=== PATIENT | male | born 1995 | race African-American/Black ===

== ENCOUNTER 2022-10-01 13:19 | Emergency (ER) | payer OTHER, SELFPAY ==
[2022-10-01 13:27] VITALS: BP 133/72; PULSE 84; RESP 16; TEMP 36.3; O2SAT 100
--- NOTE | 2022-10-01 14:08 | ED.GENADULT ---
HPI - General Adult General Chief complaint: Upper Respiratory Infection Stated complaint: sore throat Source: patient Mode of arrival: ambulatory Limitations: no limitations History of Present Illness HPI narrative: Patient presents for evaluation of sick symptoms. Seven days ago he had a fever. That improved. He later developed a cough and sore throat. He has a history of tonsil stones. He initially informed me that his current symptoms do not feel like strep but later indicated that his symptoms do feel like strep. No nausea, vomiting, diarrhea, shortness of breath. He is under the care of cardiology for cardiomyopathy. He had COVID back in 2019. He has been taking some allergy medication for his symptoms. No recent sick contacts to his knowledge. He does not smoke. Related Data Home Medications Medication Instructions Recorded Confirmed carvedilol 12.5 mg tablet 12.5 mg PO Q12H 11/08/20 11/08/20 hydrochlorothiazide 25 mg tablet 25 mg PO DAILY 11/08/20 11/08/20 sacubitril 49 mg-valsartan 51 mg 1 tablet PO BID 11/08/20 11/08/20 tablet (Entresto) spironolactone 25 mg tablet 25 mg PO DAILY 11/08/20 11/08/20 Allergies Allergy/AdvReac Type Severity Reaction Status Date / Time No Known Allergies Allergy Verified 11/08/20 13:55 Review of Systems Review of Systems: CONSTITUTIONAL: Denies fever, chills, or sweats. EYES: Denies visual changes, redness, or discharge. ENT: Reports sore throat. Denies rhinorrhea, congestion, or otalgia. CARDIOVASCULAR: Denies chest pain, palpitations, or edema. RESPIRATORY: Reports cough. Denies shortness of breath. GASTROINTESTINAL: Denies abdominal pain, nausea, vomiting, or diarrhea. GENITOURINARY: Denies dysuria or hematuria. SKIN: Denies rash or itching. MUSCULOSKELETAL: Denies back pain, joint pain, or myalgia. NEUROLOGIC: Denies headache, numbness, dizziness, or weakness. PSYCHIATRIC: Denies anxiety or depression. [facility] Past Medical History Medical History (Updated 10/01/22 @ 14:29 by Rob Perales, YOLIE, ANTHONY) History of cardiomyopathy Tonsil stone Surgical History Surgical History No pertinent past surgical history Family History Family History Mother Asthma Sibling Cancer Depression Grandparent Cancer Hypertension Social History Social History Smoking status: Never smoker Alcohol intake: never Substance use: never Substance use type: does not use Living arrangements: with family Gender identity (if verbalized by the patient): Male Spiritual care concerns: No Exam Narrative: GENERAL: Well-appearing, well-nourished, and in no acute distress. HEAD: Normocephalic, atraumatic. EYES: PERRLA and EOMI. ENT: Nares clear, no rhinorrhea or epistaxis. Mucous membranes moist. Bilateral tonsillar swelling and erythema. There are tonsil stones visible in the right. Uvula is midline. bilateral TMs pearly rodriguez nonbulging NECK: Supple. No adenopathy or masses. No carotid bruits or JVD CHEST: Clear to auscultation. No respiratory distress. No wheezes rales or rhonchi HEART: Regular rate and rhythm. No murmur heard. Normal peripheral pulses. ABDOMEN: Soft, nontender, nondistended, normal active bowel sounds. EXTREMITIES: Normal range of motion. No edema. SKIN: Warm, dry, no rash. NEURO: No focal deficits. Alert and oriented x3. PSYCH: Normal mood and affect. Course Course Emergency Course: This is a 27-year-old male who presented for evaluation of sore throat. Rapid strep was negative. We discussed to waiting for throat culture versus treating today. He would like to be treated. I think this is reasonable based on history of cardiomyopathy. Increase hydration. Kifk-[id number] agents for symptom management. Follow up with primary provider. Go to the ER
== END 2022-10-01 14:34 | disposition home or self-care (01) ==
PROVIDERS: Emergency Provider Nurse Practitioner
DX: J03.90 Acute tonsillitis, unspecified (principal)
CPT/HCPCS: 87081; 87880; 99213; G0463

== ENCOUNTER 2024-07-24 19:08 | Emergency (ER) | payer OTHER, SELFPAY ==
[2024-07-24 19:25] VITALS: BP 150/88; PULSE 122; RESP 16; TEMP 37.2; O2SAT 98
--- NOTE | 2024-07-24 19:31 | ED_ITS ---
HPI - URI/Sore Throat General Chief Complaint: Upper Respiratory Infection Stated Complaint: COUGH/STOMACH PAIN FROM COUGH/NAUSEA/RUNNY NOSE Time Seen by Provider: 07/24/24 19:23 Source: patient and RN notes reviewed Mode of arrival: ambulatory Limitations: no limitations History of Present Illness HPI Narrative: Patient presents today complaining of cough, sweats and chills, fatigue, nasal congestion, fever up to 100. Symptoms began yesterday. Denies chest pain or shortness of breath. He has tried DayQuil and Delsym without relief. He was exposed to influenza at work. He does not smoke or vape. No history of asthma. Related Data Home Medications ?Medication ?Instructions ?Recorded ?Confirmed ?Last Taken ?Type carvedilol 12.5 mg tablet 12.5 mg PO Q12H 11/08/20 07/24/24 Unknown History amlodipine 10 mg tablet mg 07/24/24 Unknown History metformin 500 mg tablet,extended mg PO 07/24/24 Unknown History release 24 hr valsartan 80 mg tablet mg 07/24/24 Unknown History Allergies Allergy/AdvReac Type Severity Reaction Status Date / Time No Known Allergies Allergy Verified 07/24/24 19:19 Review of Systems Review of Systems: CONSTITUTIONAL: Denies body aches. + fever, sweats and chills, fatigue EYES: Denies visual changes, redness, or discharge. ENT: Denies rhinorrhea, sore throat, or otalgia.+ congestion CARDIOVASCULAR: Denies chest pain, palpitations, or edema. RESPIRATORY: Denies dyspnea.+ cough GASTROINTESTINAL: Denies abdominal pain, nausea, vomiting, or diarrhea. GENITOURINARY: Denies dysuria or hematuria. SKIN: Denies rash, itching, or wounds. MUSCULOSKELETAL: Denies back pain, joint pain, or myalgia. NEUROLOGIC: Denies headache, numbness, tingling, or weakness. PSYCH: Denies depression or anxiety. [facility] Past Medical History Medical History Tonsil stone History of cardiomyopathy Surgical History Surgical History No pertinent past surgical history Family History Family History Mother Asthma Sibling Cancer Depression Grandparent Cancer Hypertension Social History Social History Smoking status: Never smoker Alcohol intake: never Substance use: never Substance use type: does not use Living arrangements: with family Gender identity (if verbalized by the patient): Male Spiritual care concerns: No Comments At time of signature, I have reviewed and agree with nursing past medical, surgical, social and family history unless otherwise noted. Please see nursing chart for further information. There is no relevant family history pertinent to the presenting complaint Exam Narrative: GENERAL: Mildly ill-appearing, well-nourished, and in no acute distress. HEAD: Normocephalic, atraumatic. EYES: EOMI. No redness or drainage. Conjunctivae normal. ENT: Mucous membranes pink and moist. Nares congested. No rhinorrhea. TMs normal bilaterally. Throat normal. Uvula midline. NECK: Normal AROM. Supple. No lymphadenopathy. CHEST: No respiratory distress. Clear to auscultation. HEART: Regular rhythm. Tachycardic. No murmur appreciated. EXTREMITIES: Normal range of motion. No edema. SKIN: Warm, dry, no rash. Capillary refill normal. Normal skin turgor. NEURO: No focal deficits. Alert and oriented x3. Gait steady. PSYCH: Normal affect. No signs of depression or anxiety. Course Course Level of Care: Express Care Visit Vital Signs Vital signs: Vital Signs Temperature 98.9 F 07/24/24 19:25 Pulse Rate 122 H 07/24/24 19:25 Respiratory Rate 07/24/24 19:25 Blood Pressure 150/88 H 07/24/24 19:25 Pulse Oximetry 98 07/24/24 19:25 Temperature 98.9 F 07/24/24 19:25 Pulse Rate 122 H 07/24/24 19:25 Respiratory Rate 07/24/24 19:25 Blood Pressure 150/88 H 07/24/24 19:25 Pulse Oximetry 98 07/24/24 19:25 Reviewed MDM - URI/Sore Throat MDM Narrative Medical decision making narrative: Influenza a positive. COVID negative. Prescription for Tamiflu and benzonatate sent to pharmacy. Anticipatory guidance given. ED precautions given. Differential Diagnosis Differential diagnosis: Likely upper respiratory infection, viral infection, influenza and other (COVID) Lab Data Attestation: I reviewed the patient's lab results. Lab results narrative: COVID negative, influenza a positive Critical Care Time Critical Care Time Critical Care Time: No Discharge Plan Discharge Clinical Impression: Influenza A Patient Disposition: Home, Self-Care Condition: Stable Instructions: Influenza (DC) Additional Instructions: You have tested positive for influenza A. Please take the Tamiflu as prescribed. Take [id number] medications such as Tylenol for fever or pain. Take the benzonatate if needed for cough. Rest and drink plenty of fluids. Follow-up with your PCP in 5-7 days if symptoms are not improving. Please go to the ER immediately if symptoms worsen to include chest pain, shortness of breath. Your blood pressure was elevated above 120/80 today at Urgent Care. This puts you above the threshold for follow up. Please schedule a followup visit with your personal physician as soon as possible, for further evaluation and treatment. Even blood pressure exceeding 120/80 may indicate pre-hypertension. Patient Language: Arabic Prescriptions: New benzonatate 200 mg capsule 200 mg PO TID PRN (Reason: cough) Qty: 20 0RF oseltamivir [Tamiflu] 75 mg capsule 75 mg PO Q12H 5 Days Qty: 10 0RF No Action valsartan 80 mg tablet amlodipine 10 mg tablet metformin 500 mg tablet extended release 24 hr PO carvedilol 12.5 mg tablet 12.5 mg PO Q12H Rx Instructions: must administer with a meal/food Follow-up/Referrals: Soham,Josiah Robison MD [Primary Care Provider] - Stand Alone Forms: Work/School Release IP Time of Disposition: 19:39
[2024-07-24 19:49] LABS: EDCOVIDSCREEN Negative (Negative); EDINFLUASCREEN Positive (Negative); EDINFLUBSCREEN Negative (Negative)
== END 2024-07-24 19:44 | disposition home or self-care (01) ==
PROVIDERS: Emergency Provider Nurse Practitioner; PCP Family Medicine
DX: J10.1 Influenza due to other identified influenza virus with other respiratory manifestations (principal); Z79.899 Other long term (current) drug therapy; Z79.84 Long term (current) use of oral hypoglycemic drugs; Z20.822 Contact with and (suspected) exposure to COVID-19
CPT/HCPCS: 87426; 87804; 99213; G0463

== ENCOUNTER 2024-08-25 14:49 | Emergency (ER) | payer OTHER, SELFPAY ==
--- NOTE | 2024-08-25 14:55 | ECG_ITS ---
Test Date: 2024-08-25 15:00:12 Measurements Intervals [place] Rate: 100 P: 64 FL: 136 QRS: 34 QRSD: 106 T: 118 QT: 348 QTc: 450 Interpretive Statements SINUS TACHYCARDIA POSSIBLE LEFT ATRIAL ENLARGEMENT NONSPECIFIC T-WAVE ABNORMALITY- LAT/HIGH LAT LEADS BORDERLINE ECG No previous ECG available for comparison Electronically Signed On 08-25-2024 15:04:41 REPORTING LEAD by Enoc Barraza D.O.
--- NOTE | 2024-08-25 14:55 | ED.CHESTPAIN ---
HPI - Chest Pain General Chief Complaint: Chest Pain Stated Complaint: Chest Tightness Time Seen by Provider: 08/25/24 14:50 Source: patient Mode of arrival: ambulatory Limitations: no limitations History of Present Illness HPI narrative: Saul is a 29year old male patient presenting to the clinic today with complaints of right upper chest pain/tightness. Reports this started approximately 40 minutes prior to arrival to the [facility]. He denies any radiation of pain. History hypertension, cardiomyopathy, and congestive heart failure. He reports he developed cardiomyopathy and congestive heart failure after having COVID. He is not a smoker. He denies any associated shortness of breath. Does have a slight cough. Feels as though he is having some hot flashes. Related Data Home Medications ?Medication ?Instructions ?Recorded ?Confirmed ?Last Taken ?Type amlodipine 10 mg tablet 20 mg PO DAILY 07/24/24 08/25/24 Unknown History metformin 500 mg tablet,extended 500 mg PO DAILY 07/24/24 08/25/24 Unknown History release 24 hr valsartan 80 mg tablet 80 mg PO DAILY 07/24/24 08/25/24 Unknown History Allergies Allergy/AdvReac Type Severity Reaction Status Date / Time No Known Allergies Allergy Verified 08/25/24 15:06 Review of Systems Review of Systems: Pertinent positives per HPI. Patient denies any fever, chills, rash, headache, visual changes, dizziness, runny nose, sore throat, shortness of breath,palpitations, nausea, vomiting, diarrhea, constipation, abdominal pain, or any urinary issues. PMFSH Past Medical History Medical History Tonsil stone History of cardiomyopathy Surgical History Surgical History No pertinent past surgical history Family History Family History Mother Asthma Sibling Cancer Depression Grandparent Cancer Hypertension Social History Social History Smoking status: Never smoker Alcohol intake: never Substance use: never Substance use type: does not use Living arrangements: with family Gender identity (if verbalized by the patient): Male Spiritual care concerns: No Comments At the time of my signature, I reviewed and agree with the nursing past medical, surgical, social, and family history. There is no relevant family history pertinent to the patient complaint. Exam Narrative: General: Well-developed, morbidly obese, in no apparent distress Head: Normocephalic, atraumatic. Cardio: Regular rate and rhythm, s1 and s2 normal, no murmur appreciated. Resp: Clear to auscultation bilaterally, no rhonchi, rales, wheezing or rubs. Extremities: No deformity, no edema, no cyanosis, capillary refill less than 2 seconds, peripheral pulses palpable and strong. Integumentary: [place], warm, and dry, intact without lesion, no rashes. Course Course Emergency Course: Portions of this record may have been created with voice recognition software. Level of Care: Express Care Visit Vital Signs Vital signs: Vital Signs Temperature 36.1 C L 08/25/24 14:56 Pulse Rate 112 H 08/25/24 14:56 Respiratory Rate 20 08/25/24 14:56 Blood Pressure 154/120 H 08/25/24 14:56 Pulse Oximetry 100 08/25/24 14:56 Oxygen Delivery Room Air 08/25/24 14:56 Temperature 36.1 C L 08/25/24 14:56 Pulse Rate 112 H 08/25/24 14:56 Respiratory Rate 20 08/25/24 14:56 Blood Pressure 154/120 H 08/25/24 14:56 Pulse Oximetry 100 08/25/24 14:56 Oxygen Delivery Room Air 08/25/24 14:56 Vital signs reviewed MDM - Chest Pain MDM Narrative Medical decision making narrative: At the time of visit patient is resting comfortably on the exam table. Patient appears to be nontoxic. EKG: EKG shows sinus tachycardia with a possible left atrial enlargement with a nonspecific T-wave abnormality. Ventricular rate 100 beats per minute, NV intervals 136 milliseconds, QRS durations 106 milliseconds, QT-QTC is 348-405 milliseconds, P-R-T axis 64 34 118 Plan: 4 baby aspirin given in the clinic today. Recommend transfer to the ER for further evaluation. Patient's compliance field technician is [facility]-recommend sending him there. He agrees to transfer. Recommend he take an ambulance to get there and he is declining. Risk and benefits were discussed for ambulance transfer and AMA for ambulance transfer was signed. Patient voiced understanding. Patient would like to go by private car. Differential Diagnosis Differential diagnosis: Likely fracture of rib, pneumothorax, stable angina, unstable angina pectoris, atypical chest pain, st elevation myocardial infarction, costochondritis, chest pain and biliary colic ECG Data EKG #1: Attestation: I personally reviewed and interpreted this ECG as follows: ECG completion date: 08/25/24 ECG completion time: 15:00 Prior ECG tracings: not available for review Interpretation: EKG shows sinus tachycardia with a possible left atrial enlargement with a nonspecific T-wave abnormality. Ventricular rate 100 beats per minute, NV intervals 136 milliseconds, QRS durations 106 milliseconds, QT-QTC is 348-405 milliseconds, P-R-T axis 64 34 118 Discharge Plan Discharge Clinical Impression: Chest pain Qualifiers: Chest pain type: unspecified Qualified Code(s): R07.9 - Chest pain, unspecified Patient Disposition: Acute Care Hospital Condition: Guarded Prognosis Patient Language: Nepalese Prescriptions: No Action valsartan 80 mg tablet 80 mg PO DAILY amlodipine 10 mg tablet 20 mg PO DAILY metformin 500 mg tablet extended release 24 hr 500 mg PO DAILY oseltamivir [Tamiflu] 75 mg capsule 75 mg PO Q12H 5 Days Qty: 10 0RF Follow-up/Referrals: PHYSICIAN,CHECKER [Primary Care Provider] - Time of Disposition: 15:11 Quality NIHSS Nursing Documentation ED NIHSS nursing documentation: reviewed/agree
[2024-08-25 14:56] VITALS: BP 154/120; PULSE 112; RESP 20; TEMP 36.1; O2SAT 100
[2024-08-25] MEDS: ASPIRIN 81 MG CHEWABLE TABLET 324 MG PO (15:11)
[2024-08-25 15:23] VITALS: BP 131/86; PULSE 100; RESP 18; O2SAT 99
== END 2024-08-25 15:23 | disposition short-term general hospital (02) ==
PROVIDERS: Emergency Provider Nurse Practitioner Family
DX: R07.9 Chest pain, unspecified (principal); I42.9 Cardiomyopathy, unspecified; I11.0 Hypertensive heart disease with heart failure; I50.9 Heart failure, unspecified
CPT/HCPCS: 93005; 99213; A9270; G0463